=== PATIENT | female | born 1965 | race Caucasian/White ===

== ENCOUNTER → 2018-01-30 | Outpatient (CLI) | payer OTHER | END | disposition home or self-care (01) | LOC: C.LABSPEC 17:31 | PROVIDERS: ATTEND Physician Assistant | DX: B37.3 Candidiasis of vulva and vagina (principal) ==

== ENCOUNTER 2019-02-26 12:26 | Observation (INO) ==
--- OUTSIDE RECORDS SUMMARY | 2019-02-26 12:28 | External Medical Summary | Continuity of Care Document ---
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) Allergies and Adverse Reactions No Known Drug Allergies (Allergy) Medications Motrin TABS Refills: 0 Multiple Vitamin TABS Refills: 0 Procedures History of Dilation And Curettage Status : Completed History of Tubal Ligation During Section Status: Completed History of Section Status: Comp leted History of Hysterectomy Status: Complete d History of Cholecystectomy Status: Compl eted Immunizations Immunizations not documented Family History Mother Family history of diabetes mellitus (V18.0) (Z83.3) Status: Active Father Family history of diabetes mellitus (V18.0) (Z83.3) Status: Active Social History - Smoking Status Never smoker Interventions Discussion/SummarySymptoms are improving. May consider continuing to apply clotrimazole to area for another 2-4 weeks,also consider OTC hydrocortisone to help reduce inflammation. Follow up as needed. Plan of Treatment Planned Observations Planned Goals not documented Results No Known Results Results not documented Encounters Appointment; Cece Diehl PA-C 30-Jan-2018 13:50 Encounter Diagnosis: Problem not documented Appointment; Cece Diehl PA-C 12-Feb-2018 14:20 Encounter Diagnosis: Problem not documented
[2019-02-26] MEDS ORDERED: MoRPHine SULFATE 4 MG/ML 1 ML CARP\\VIAL IV STA (12:53)
[2019-02-26] MEDS ORDERED: ONDANSETRON INJ 2 MG/ML 2 ML VIAL IV STA (12:53)
[2019-02-26 13:43] LABS: Basophils # (auto) 0.03 K/uL (0-0.2); Basophils % (auto) 0.2 %; Eosinophils # (auto) 0.11 K/uL (0-0.5); Eosinophils % (auto) 0.6 %; Hematocrit (blood only) 39.5 % (37-47); Hemoglobin 13.2 g/dL (12.0-16.0); Immature Granulocytes # (auto) 0.07 K/uL (0.00-0.02); Immature Granulocytes % (auto) 0.4 %; Lymphocytes # (auto) 1.89 K/uL (1.2-3.4); Mean Corpuscular Hgb Conc 33.4 g/dL (32-36); Mean Corpuscular Volume 80.1 fL (80-100); Mean Platelet Volume 10.6 fL (7.4-10.4); Monocytes # (auto) 1.68 K/uL (0.11-0.59); Monocytes % (auto) 8.9 %; Neutrophils # (auto) 15.09 K/uL (1.4-6.5); Neutrophils % (auto) 79.9 %; Platelet Count 219 K/uL (130-400); RDW Coefficient of Variation 13.8 % (11.5-14.5); Red Blood Count 4.93 M/uL (4.2-5.4); White Blood Count 18.87 K/uL (4.8-10.8)
[2019-02-26] MEDS ORDERED: SODIUM CHLORIDE 0.9% 1000ML 1,000 ML IV ONE (13:57)
[2019-02-26 14:00] LABS: Albumin Level 3.4 gm/dl (3.4-5.0); BUN Creatinine Ratio 30.1 (10-20); Creatinine Clr Calc Pharmacy 106.7 ml/min; Est GFR (African American) 127.2; Est GFR (Non-African American) 109.8; Potassium 3.6 mmol/L (3.5-5.1)
[2019-02-26 14:03] LABS: Albumin Globulin Ratio 0.9 (0.9-2); Bilirubin,Total 0.7 mg/dl (0.2-1); Globulin 3.8 gm/dl (2.5-4.0); Total Protein 7.2 gm/dl (6.4-8.2)
[2019-02-26 14:15] LABS: Appearance Urine Clear (Clear); Bilirubin Urine Negative (Negative); Color Urine Yellow; Glucose Urine UA 3+ (Negative); Ketones Urine 1+ (Negative); Leukocyte Esterase Urine Negative (Negative); Nitrite Urine Negative (Negative); Protein Urine Negative (Negative); Specific Gravity Urine 1.043 (1.000-1.030); Urobilinogen Urine Negative (Negative); pH Urine 5.5 (4.5-7.5)
[2019-02-26] MEDS ORDERED: IOVERSOL 100ml IV PRN (15:44)
--- NOTE | 2019-02-26 15:53 | CT Scan Report ---
CT abd pelvis oral and IV con CT DOSE: 316.01 mGy.cm HISTORY: Pain lower abd pain eval for divertic TECHNIQUE: Multiaxial CT images of the abdomen and pelvis were performed following the use of intrave nous and oral contrast. A dose lowering technique was utilized adhering to the principles of ALARA. COMPARISON STUDY: None. FINDINGS: Lung bases are clear. Liver spleen and pancreas are unremarkable. Prior cholecystectomy. Kidneys enhance uniformly. No evidence for hydronephrosis. Evidence for a distended fluid-filled appe ndix having a maximum diameter of 12 mm. Trace amount of periappendiceal infiltrative change with sli ght edematous change at the base of the cecum. The terminal ileum appears unremarkable. No evidence for abscess or collection. Bladder is midline. Scattered colonic diverticulosis. Left ovarian cyst measuring 1.3 and 1.5 cm respectively. IMPRESSION: 1. Acute appendicitis. 2. Appendix is dilated to a maximum diameter of 12 mm. 3. Small amount of periappendiceal infiltrative change. 4. No evidence for abscess collection or obstructive change. 5. Small left ovarian cyst. The above report was generated using voice recognition software. It may contain grammatical, syntax or spelling errors. Electronically signed by: Daniel Guerrier M.D. 02/26/2019 3:52 PM
[2019-02-26] MEDS ORDERED: MoRPHine SULFATE 2 MG/ML CARP IV STA (16:05)
[2019-02-26] MEDS ORDERED: cefOXitin 2,000 MG/60 ML BAG IV STA (16:34)
--- NOTE | 2019-02-26 16:43 | Surgery Consultation ---
Date of Consultation February 26, 2019 Assessment & Plan (1) Acute appendicitis: pt is a 54 year-old female who presents to ER with 3 days history RLQ pain, CT scan dx acute appendicitis, I reviewed the CT scan, IMP: acute appendicitis, possible perforation, Plan: I recommend to do laparoscopic appendectomy, possible open, D/W benefits, risks and alternatives of the surgery, the risks - infection,b bleeding, injury Bowel, abscess, sepsis, DVT, SC, stroke, , pt understood, she agrees with the surgery, I answered all questions, pre-op cefoxitin 2gram, iv now, History of Present Illness History of Present Illness pt is a 54 year-old female who presents to Er with 3 days history RLQ pain, with nausea, no vomiting, the pain is located at RLQ, pt denies diarrhea, no fever, pt had CT scan at Er, Dx acute appendicitis, pt's PMH only is DM, pt denies any chest pain, no SOB. Allergies Allergy/AdvReac Type Severity Reaction Status Date / Time No Known Allergies Allergy Verified 12/04/02 14:30 Home Medications Home Medications Medication Instructions Recorded Confirmed Type empagliflozin [Jardiance] 10 mg PO DAILY 02/26/19 02/26/19 History metformin 500 mg PO BID 02/26/19 02/26/19 History sitagliptin [Januvia] 50 mg PO DAILY 02/26/19 02/26/19 History Patient History Medical History Diabetes (Chronic) Social History Feels Safe at Home: Yes Smoking Status: Former smoker Review of Systems Review of Systems: All systems reviewed & are unremarkable except as noted in HPI & below Constitutional: as per Subjective / HPI Ear, Nose, Mouth, Throat: as per Subjective / HPI Respiratory: as per Subjective / HPI Cardiovascular: as per Subjective / HPI Gastrointestinal: + abdominal pain and + nausea S/P laparoscopic cholecy stectomy Genitourinary: as per Subjective / HPI Musculoskeletal: as per Subjective / HPI Integumentary: as per Subjective / HPI Neurologic: as per Subjective / HPI Psychiatric: as per Subjective / HPI Endocrine: as per Subjective / HPI Hematologic / Lymphatic: as per Subjective / HPI Physical Exam Constitutional: WD/WN, vitals as above well developed and well nourished ENMT: external ear and nose normal, oropharynx normal Neck: trachea midline, no thyromegaly Respiratory: normal respiratory effort, lungs clear to auscultation normal respiratory effort Cardiovascular: RRR, no murmur, no edema Rate/Rhythm: regular rate and regular rhythm Heart Sounds: normal S1 and normal S2 Gastrointestinal (Abdomen): Percussion/Palpation: + abdomen tender and abdomen soft tenderness at lower abdomen with rebound pain, no distend, BS +, one scar on umbilical area fotr laparoscopic cholecystectomy. one lower abdominal scar for hysterectomy Musculoskeletal: no cyanosis or clubbing, extremities motor strength 5/5 Neurologic: awake Psychiatric: Orientation: alert and oriented x 3 Lymphatic: no cervical or axillary lymphadenopathy Results & Data Vital Signs (Past 12 Hours) Vital Signs Temp Pulse Pulse Resp BP BP Pulse Ox 02/26/19 15:49 88 18 125/77 96 02/26/19 15:02 88 13 125/73 02/26/19 14:31 80 15 134/70 98 02/26/19 14:01 87 17 128/76 98 02/26/19 13:28 91 H 94 H 14 133/73 133/73 97 02/26/19 12:29 36.4 C L 96 H 16 125/75 99 Laboratory Results Abnormal lab results 02/26/19 02/26/19 02/26/19 Range/Units 13:24 13:24 13:25 WBC 18.87 H (4.8-10.8) K/uL MPV 10.6 H (7.4-10.4) fL Immature Gran # (Auto) 0.07 H (0.00-0.02) K/uL Neut # (Auto) 15.09 H (1.4-6.5) K/uL [place] # (Auto) 1.68 H (0.11-0.59) K/uL Creatinine 0.51 L (0.6-1.2) mg/dl BUN/Creatinine Ratio 30.1 H (10-20) Glucose 149 H (70-99) mg/dl Ur Specific [place] (1.000-1.030) Urine Glucose (UA) (Negative) POC Ur Glucose (UA) 1000 H (Normal) Urine Ketones (Negative) POC Urine Ketones 2+ (Moderate) H (Negative) 02/26/19 Range/Units 13:25 WBC (4.8-10.8) K/uL MPV (7.4-10.4) fL Immature Gran # (Auto) (0.00-0.02) K/uL Neut # (Auto) (1.4-6.5) K/uL [place] # (Auto) (0.11-0.59) K/uL Creatinine (0.6-1.2) mg/dl BUN/Creatinine Ratio (10-20) Glucose (70-99) mg/dl Ur Specific [place] 1.043 H (1.000-1.030) Urine Glucose (UA) 3+ H (Negative) POC Ur Glucose (UA) (Normal) Urine Ketones 1+ H (Negative) POC Urine Ketones (Negative) Diagnostic Findings CT abd pelvis oral and IV con CT DOSE: 316.01 mGy.cm HISTORY: Pain lower abd pain eval for divertic TECHNIQUE: Multiaxial CT images of the abdomen and pelvis were performed following the use of intravenous and oral contrast. A dose lowering technique was utilized adhering to the principles of ALARA. COMPARISON STUDY: None. FINDINGS: Lung bases are clear. Liver spleen and pancreas are unremarkable. Prior cholecystectomy. Kidneys enhance uniformly. No evidence for hydronephrosis. Evidence for a distended fluid-filled appendix having a maximum diameter of 12 mm. Trace amount of periappendiceal infiltrative change with slight edematous change at the base of the cecum. The terminal ileum appears unremarkable. No evidence for abscess or collection. Bladder is midline. Scattered colonic diverticulosis. Left ovarian cyst measuring 1.3 and 1.5 cm r espectively. IMPRESSION: 1. Acute appendicitis. 2. Appendix is dilated to a maximum diameter of 12 mm. 3. Small amount of periappendiceal infiltrative change. 4. No evidence for abscess collection or obstructive change. 5. Small left ovarian cyst. (1) Acute appendicitis Acute appendicitis type: unspecified acute appendicitis type Qualified Code(s): K35.80 - Unspecified acute appendicitis
--- NOTE | 2019-02-26 16:51 | History & Physical Bridge Note ---
Date of Service February 26, 2019 History & Physical Bridge Note I have examined the patient, reviewed the History & Physical and in the interval since the performance of the History & Physical I have noted the following changes of clinical significance: no changes noted
[2019-02-26] MEDS ORDERED: fentaNYL citrate 100 MCG/2 ML VIAL ONE (18:04)
[2019-02-26] MEDS ORDERED: MIDAZOLAM HCL 1 MG/ML 2ML VIAL ONE (18:04)
--- NOTE | 2019-02-26 18:16 | Anesthesiology Consultation ---
Date of Service February 26, 2019 Assessment & Plan Chart Review Chart Review: Acceptable Risk for Surgery and Patient NOT seen in Pre Admission Testing Consults Requested none ASA [id number] Proposed Anesthesia Anesthesia Type: General Risk / Benefits Reviewed With: PT / POA / Parent / Guardian, Accepts Plan and Informed Consent Obtained History Surgery Operation Date: 02/26/19 12:40 Proposed Procedures p Laparoscopic Appendectomy - Katie Brizuela MD Height/Weight Height: 5 ft 1 in Weight: 60.8 kg Allergies Allergy/AdvReac Type Severity Reaction Status Date / Time No Known Allergies Allergy Verified 02/26/19 17:53 Medications Home Medications Medication Instructions Recorded Confirmed Last Taken empagliflozin [Jardiance] 10 mg PO DAILY 02/26/19 02/26/19 Unknown metformin 500 mg PO BID 02/26/19 02/26/19 02/24/19 sitagliptin [Januvia] 50 mg PO DAILY 02/26/19 02/26/19 Unknown Active Medications Generic Name Dose Route Start Last Admin Trade Name Freq PRN Reason Stop Dose Admin Ioversol 94 ml 02/26/19 15:44 02/26/19 15:45 Optiray 320 100ml IV 03/02/19 15:43 94 ml ONCE PRN Administration Interaction Checking NPO Date Last Intake of Fluids: 02/26/19 Time Last Intake of Fluids: 15:00 Last Intake of Fluids Comment: Ct dye Date Last Intake of Solids: 02/26/19 Time Last Intake of Solids: 09:30 Past Medical History Medical History Acute appendicitis (Acute) Diabetes (Chronic) Exercise / Class Metabolic Activity II 4-5 Yardwork/Stairs/Walk up hill Past Anesthesia History No Hx of Anesthesia Complications and No Family Hx of Anesthesia Complications History of PONV No Hx of PONV and No Hx of Motion Sickness Social History Smoking Status: Former smoker Physical Exam Vital Signs Last Vital Signs Temp 37.3 C 02/26/19 17:54 Pulse 102 H 02/26/19 17:54 Resp 20 02/26/19 17:54 BP 134/73 02/26/19 17:54 Pulse Ox 95 02/26/19 17:54 Constitutional not obese ENMT Mouth: no dentition abnormality Thyromental Distance: < 3.5 Finger Breadths Mallampati Class: II Neck normal visual inspection and trachea midline; neck extension not limited Respiratory normal respiratory effort Auscultation: lungs clear to auscultation bilaterally Cardiovascular Rate/Rhythm: regular rate and regular rhythm Heart Sounds: no murmur Vessels: no carotid bruit Musculoskeletal Spine: normal cervical ROM Neurologic moves all extremities Motor/Sensory: + sensory deficit (diabetic PN fingers) Psychiatric Orientation: alert and oriented x 3 Testing Laboratory Results 02/26/19 13:24 02/26/19 13:24 Urine Color Yellow 02/26/19 13:25 Urine Appearance Clear (Clear) 02/26/19 13:25 Urine pH 5.5 (4.5-7.5) 02/26/19 13:25 Ur Specific [place] 1.043 (1.000-1.030) H 02/26/19 13:25 Urine Protein Negative (Negative) 02/26/19 13:25 Urine Glucose (UA) 3+ (Negative) H 02/26/19 13:25 Urine Ketones 1+ (Negative) H 02/26/19 13:25 Urine Nitrite Negative (Negative) 02/26/19 13:25 Ur Leukocyte Esterase Negative (Negative) 02/26/19 13:25 02/26/19 18:00 POC Glucose 95 02/26/19 13:25 POC Ur Test NEG
--- NOTE | 2019-02-26 18:21 | Emergency Department Note ---
Entered by Nelly Swain acting as a scribe for Giorgio Maddox MD History of Present Illness General Chief complaint: Abdominal Pain Stated complaint: ABDOMINAL PAIN Source: patient History of Present Illness Onset (ago): day(s) 2 Location: abdomen (lower) Pain Consistency: + other (persistent ) Maximum Pain Intensity: 9 Quality: + other (cramping ) Exacerbated By: + movement Associated symptoms: + other (negative urinary symptoms; positive dark stools; negative black stools; ); no fever/chills and no nausea/vomiting (positive resolved nausea) The patient is a 54 year old female who presents to the Emergency Room with complaints of persistent lower abdominal pain that began 2 days prior to arrival. The patient describes her pain as cramping. The patient states that her pain is exacerbated with movement. She denies fever, urinary symptoms, and vomiting. The patient states that when her pain began she had nausea, but states that this has since resolved. She states that she has had dark stools, but denies black stools. The patient states that her last bowel movement was 2 nights ago, and states that this is a normal amount of time to go without a bowel movement for her. The patient states that she was switched to a new medication for her diabetes, Glyxambi, the morning before her pain began. The patient states that she has previous had a hysteretomy, three C-sections, and a cholecystectomy. Home Medications Home Medications Medication Instructions Recorded Confirmed Type empagliflozin [Jardiance] 10 mg PO DAILY 02/26/19 02/26/19 History metformin 500 mg PO BID 02/26/19 02/26/19 History sitagliptin [Januvia] 50 mg PO DAILY 02/26/19 02/26/19 History Allergies Allergy/AdvReac Type Severity Reaction Status Date / Time No Known Allergies Allergy Verified 02/26/19 17:53 Past Med/Surg History Medical History Acute appendicitis (Acute) Diabetes (Chronic) Social History Feels Safe at Home: Yes Smoking Status: Former smoker Review of Systems See HPI for pertinent positives & negatives. and A total of 10 systems reviewed and were otherwise negative Physical Exam Vital Signs Vital Signs - 24 hr 02/26/19 12:29 02/26/19 13:28 02/26/19 14:01 Temperature 36.4 C L Temperature Source Oral Sepsis Recent Fever Within 48 Hours No Sepsis Action Taken by Nursing No Action Required Pulse Rate 96 H 91 H 87 Pulse Rate [Apical] 94 H Pulse Rate [Finger] Pulse Rate from SpO2 Sensor 90 88 Pulse Rhythm [Finger] Pulse Strength [Finger] Respiratory Rate 16 14 17 Respiratory Effort / Characteristics Non-Labored Respiratory Depth Normal Respiratory Pattern Regular Blood Pressure 125/75 133/73 128/76 Blood Pressure [Left Arm] 133/73 Blood Pressure Mean 91 93 93 Blood Pressure Mean [Left Arm] 93 Blood Pressure Position Sitting Blood Pressure Position [Left Arm] Pulse Oximetry 99 97 98 Oxygen Delivery Method Room Air Room Air 02/26/19 14:31 02/26/19 15:02 02/26/19 15:49 Temperature Temperature Source Sepsis Recent Fever Within 48 Hours Sepsis Action Taken by Nursing Pulse Rate 80 88 Pulse Rate [Apical] 88 Pulse Rate [Finger] Pulse Rate from SpO2 Sensor 81 Pulse Rhythm [Finger] Pulse Strength [Finger] Respiratory Rate 15 13 18 Respiratory Effort / Characteristics Respiratory Depth Respiratory Pattern Blood Pressure 134/70 125/73 Blood Pressure [Left Arm] 125/77 Blood Pressure Mean 91 90 Blood Pressure Mean [Left Arm] 93 Blood Pressure Position Blood Pressure Position [Left Arm] Pulse Oximetry 98 96 Oxygen Delivery Method Room Air 02/26/19 16:01 02/26/19 16:31 02/26/19 17:01 Temperature Temperature Source Sepsis Recent Fever Within 48 Hours Sepsis Action Taken by Nursing Pulse Rate 82 99 H 97 H Pulse Rate [Apical] Pulse Rate [Finger] Pulse Rate from SpO2 Sensor 83 99 H Pulse Rhythm [Finger] Pulse Strength [Finger] Respiratory Rate 15 18 26 H Respiratory Effort / Characteristics Respiratory Depth Respiratory Pattern Blood Pressure 120/83 141/82 H 139/87 Blood Pressure [Left Arm] Blood Pressure Mean 95 101 104 Blood Pressure Mean [Left Arm] Blood Pressure Position Blood Pressure Position [Left Arm] Pulse Oximetry 99 100 Oxygen Delivery Method Room Air Room Air 02/26/19 17:03 02/26/19 17:31 02/26/19 17:54 Temperature 37.3 C Temperature Source Oral Sepsis Recent Fever Within 48 Hours Sepsis Action Taken by Nursing Pulse Rate 94 H Pulse Rate [Apical] 93 H Pulse Rate [Finger] 102 H Pulse Rate from SpO2 Sensor 95 H Pulse Rhythm [Finger] Regular Pulse Strength [Finger] Normal Respiratory Rate 16 14 20 Respiratory Effort / Characteristics Non-Labored Spontaneous Non-Labored Spontaneous Respiratory Depth Normal Normal Respiratory Pattern Regular Blood Pressure 131/72 Blood Pressure [Left Arm] 139/87 134/73 Blood Pressure Mean 91 Blood Pressure Mean [Left Arm] 104 93 Blood Pressure Position Blood Pressure Position [Left Arm] Sitting Pulse Oximetry 97 98 95 Oxygen Delivery Method Room Air Room Air Room Air Constitutional: Vital signs reviewed. Eyes: Pupils are equal round reactive to light. Conjunctiva are noninjected. ENT: Pharynx is clear without erythema or exudate. Mucous membranes are moist. Neck supple without meningeal signs. Respiratory: Clear to auscultation bilaterally. Breath sounds are equal bilaterally. Cardiovascular: Regular rate and rhythm. No rubs or gallops. GI: Soft, nondistended. Bowel sounds are present. Diffuse lower abdominal tenderness. No guarding. No CVA tenderness. Musculoskeletal: No peripheral edema. No lower extremity tenderness. Integumentary: No cyanosis. Neurological: The patient is awake and alert. No focal deficits. Psychiatric: Normal affect. Course 1247: The patient was evaluated in room C1B, and a complete history and physical examination were performed. 1400: I discussed the test results so far with the patient. She states that she feels better, but states that she feels lightheaded from the medication. The patient states that she has not taken her diabetes medication in 2 days because her doctor told her not to because it was thought these might be responsible for her symptoms. 1624: I discussed the case with Dr. Mayen who states that he will be taking the patient to the OR. Consultations Consultation #1: I discussed the case with Dr. Mayen who states that he will be taking the patient to the OR. Time: 16:24 Administered Medications Ioversol (Optiray 320 100ml) 94 ml IV ONCE PRN PRN Reason: Interaction Checking Stop: 03/02/19 15:43 Last Admin: 02/26/19 15:45 Dose: 94 ml Documented by: [id number] Discontinued Medications Sodium Chloride (Nss 1000ml) 1,000 mls @ 999 mls/hr IV .Q1H1M ONE Stop: 02/26/19 14:57 Last Infusion: 02/26/19 17:05 Dose: 0 mls/hr Documented by: [id number] Admin: 02/26/19 14:35 Dose: 999 mls/hr Documented by: [id number] Cefoxitin Sodium (Mefoxin) 2,000 mg in 60 mls @ 100 mls/hr IV NOW STA Stop: 02/26/19 17:09 Last Infusion: 02/26/19 17:36 Dose: 0 mls/hr Documented by: [id number] Admin: 02/26/19 17:00 Dose: 100 mls/hr Documented by: [id number] Morphine Sulfate (Morphine Sulfate) 4 mg IV NOW STA Stop: 02/26/19 12:54 Last Admin: 02/26/19 13:29 Dose: 4 mg Documented by: [id number] Morphine Sulfate (Morphine Sulfate) 2 mg IV NOW STA Stop: 02/26/19 16:06 Last Admin: 02/26/19 16:11 Dose: 2 mg Documented by: [id number] Ondansetron HCl (Zofran) 4 mg IV NOW STA Stop: 02/26/19 12:54 Last Admin: 02/26/19 13:29 Dose: 4 mg Documented by: [id number] Medical Decision Making Differential Diagnosis Differential diagnoses include diverticulitis, perforation, abscess, appe ndicitis, colitis, and others were considered. Medical Records Attestation: I reviewed the patient's medical records. (The patient has no recent pertinent visits. ) Home Medications Current Medication List: was personally reviewed by me Laboratory Data Attestation: I reviewed the patient's lab results. Result diagrams: 02/26/19 13:24 02/26/19 13:24 Lab Results 02/26/19 02/26/19 02/26/19 Range/Units 13:24 13:24 13:25 WBC 18.87 H (4.8-10.8) K/uL RBC 4.93 (4.2-5.4) M/uL Hgb 13.2 (12.0-16.0) g/dL Hct 39.5 (37-47) % MCV 80.1 (80-100) fL MCH 26.8 (25-34) pg MCHC 33.4 (32-36) g/dL RDW Std Deviation 40.0 (36.4-46.3) fL RDW Coeff of Roderick 13.8 (11.5-14.5) % Plt Count 219 (130-400) K/uL MPV 10.6 H (7.4-10.4) fL Immature Gran % (Auto) 0.4 % Neut % (Auto) 79.9 % Lymph % (Auto) 10.0 % [place] % (Auto) 8.9 % Eos % (Auto) 0.6 % Baso % (Auto) 0.2 % Immature Gran # (Auto) 0.07 H (0.00-0.02) K/uL Neut # (Auto) 15.09 H (1.4-6.5) K/uL Lymph # (Auto) 1.89 (1.2-3.4) K/uL [place] # (Auto) 1.68 H (0.11-0.59) K/uL Eos # (Auto) 0.11 (0-0.5) K/uL Baso # (Auto) 0.03 (0-0.2) K/uL Sodium 137 (136-145) mmol/L Potassium 3.6 (3.5-5.1) mmol/L Chloride 104 (98-107) mmol/L Carbon Dioxide 26 (21-32) mmol/L Anion Gap 6.0 (3-11) BUN 15 (7-18) mg/dl Creatinine 0.51 L (0.6-1.2) mg/dl Est Cr Clr Drug Dosing 106.7 ml/min Est GFR ( Amer) 127.2 Est GFR (Non-Af Amer) 109.8 BUN/Creatinine Ratio 30.1 H (10-20) Glucose 149 H (70-99) mg/dl POC Glucose (70-99) Calcium 9.0 (8.5-10.1) mg/dl Total Bilirubin 0.7 (0.2-1) mg/dl AST 20 (15-37) U/L ALT 27 (12-78) U/L Alkaline Phosphatase 64 (45-117) U/L Total Protein 7.2 (6.4-8.2) gm/dl Albumin 3.4 (3.4-5.0) gm/dl Globulin 3.8 (2.5-4.0) gm/dl Albumin/Globulin Ratio 0.9 (0.9-2) Lipase 154 (73-393) U/L Urine Color Urine Appearance (Clear) Urine pH (4.5-7.5) POC Urine pH 5 (4.5-7.5) Ur Specific Bynum (1.000-1.030) Urine Protein (Negative) POC Urine Protein Negative (Negative) Urine Glucose (UA) (Negative) POC Ur Glucose (UA) 1000 H (Normal) Urine Ketones (Negative) POC Urine Ketones 2+ (Moderate) H (Negative) Urine Blood (Negative) POC Urine Blood Negative (Negative) Urine Nitrite (Negative) POC Urine Nitrite Negative (Negative) Urine Bilirubin (Negative) POC Urine Bilirubin Not Reportable Urine Urobilinogen (Negative) POC Urine Urobilinogen Normal (Normal) Ur Leukocyte Esterase (Negative) POC U Leukocyte Esteras Negative (Negative) POC Ur Test (NEG) 02/26/19 02/26/19 02/26/19 Range/Units 13:25 13:25 18:00 WBC (4.8-10.8) K/uL RBC (4.2-5.4) M/uL Hgb (12.0-16.0) g/dL Hct (37-47) % MCV (80-100) fL MCH (25-34) pg MCHC (32-36) g/dL RDW Std Deviation (36.4-46.3) fL RDW Coeff of Roderick (11.5-14.5) % Plt Count (130-400) K/uL MPV (7.4-10.4) fL Immature Gran % (Auto) % Neut % (Auto) % Lymph % (Auto) % [place] % (Auto) % Eos % (Auto) % Baso % (Auto) % Immature Gran # (Auto) (0.00-0.02) K/uL Neut # (Auto) (1.4-6.5) K/uL Lymph # (Auto) (1.2-3.4) K/uL [place] # (Auto) (0.11-0.59) K/uL Eos # (Auto) (0-0.5) K/uL Baso # (Auto) (0-0.2) K/uL Sodium (136-145) mmol/L Potassium (3.5-5.1) mmol/L Chloride (98-107) mmol/L Carbon Dioxide (21-32) mmol/L Anion Gap (3-11) BUN (7-18) mg/dl Creatinine (0.6-1.2) mg/dl Est Cr Clr Drug Dosing ml/min Est GFR ( Amer) Est GFR (Non-Af Amer) BUN/Creatinine Ratio (10-20) Glucose (70-99) mg/dl POC Glucose 95 (70-99) Calcium (8.5-10.1) mg/dl Total Bilirubin (0.2-1) mg/dl AST (15-37) U/L ALT (12-78) U/L Alkaline Phosphatase (45-117) U/L Total Protein (6.4-8.2) gm/dl Albumin (3.4-5.0) gm/dl Globulin (2.5-4.0) gm/dl Albumin/Globulin Ratio (0.9-2) Lipase (73-393) U/L Urine Color Yellow Urine Appearance Clear (Clear) Urine pH 5.5 (4.5-7.5) POC Urine pH (4.5-7.5) Ur Specific [place] 1.043 H (1.000-1.030) Urine Protein Negative (Negative) POC Urine Protein (Negative) Urine Glucose (UA) 3+ H (Negative) POC Ur Glucose (UA) (Normal) Urine Ketones 1+ H (Negative) POC Urine Ketones (Negative) Urine Blood Negative (Negative) POC Urine Blood (Negative) Urine Nitrite Negative (Negative) POC Urine Nitrite (Negative) Urine Bilirubin Negative (Negative) POC Urine Bilirubin Urine Urobilinogen Negative (Negative) POC Urine Urobilinogen (Normal) Ur Leukocyte Esterase Negative (Negative) POC U Leukocyte Esteras (Negative) POC Ur Test NEG (NEG) Imaging Data Radiologist's Impression: Radiology results as stated below per my review and the radiologist's interpretation: CT abd pelvis oral and IV con CT DOSE: 316.01 mGy.cm HISTORY: Pain lower abd pain eval for divertic TECHNIQUE: Multiaxial CT images of the abdomen and pelvis were performed following the use of intravenous and oral contrast. A dose lowering technique w as utilized adhering to the principles of ALARA. COMPARISON STUDY: None. FINDINGS: Lung bases are clear. Liver spleen and pancreas are unremarkable. Prior cholecystectomy. Kidneys enhance uniformly. No evidence for hydronephrosis. Evidence for a distended fluid-filled appendix having a maximum diameter of 12 mm. Trace amount of periappendiceal infiltrative change with slight edematous change at the base of the cecum. The terminal ileum appears unremarkable. No evidence for abscess or collection. Bladder is midline. Scattered colonic diverticulosis. Left ovarian cyst measuring 1.3 and 1.5 cm respectively. IMPRESSION: 1. Acute appendicitis. 2. Appendix is dilated to a maximum diameter of 12 mm. 3. Small amount of periappendiceal infiltrative change. 4. No evidence for abscess collection or obstructive change. 5. Small left ovarian cyst. The above report was generated using voice recognition software. It may contain grammatical, syntax or spelling errors. Electronically signed by: Daniel Guerrier M.D. 02/26/2019 3:52 PM Blood Pressure Blood Pressure Findings: Normal blood pressure MDM Narrative I did evaluate the patient as noted above. The patient is presenting with lower abdominal pain with tenderness over the past 2 days. IV access was e stablished. I did treat the patient with IV morphine and Zofran. She is also given the normal saline IV. The patient was placed on a continuous monitoring and evaluation advisor. I did order a urine analysis. There is glucose but no signs of infection. I did order and review the patient's blood work as noted in the electronic medical record. Her white count is elevated significantly. I did order a CT of the abdomen and pelvis. I did review the images myself as well as the radiology report as described above. She does have acute appendicitis. I did discuss the test results with her. I did treat her with additional IV morphine. I did discuss the case with the surgeon on-call who took the patient to the OR for appendectomy. Impression & Plan Acute appendicitis Discharge Plan Visit Data *Final* Discharge Date/Time: 02/26/19 17:47 Chief Complaint: Abdominal Pain Stated Complaint: ABDOMINAL PAIN ED Provider: Giorgio Maddox Discharge Problem: Acute appendicitis Patient Disposition: Admitted As Inpatient Discharge Instructions Interventions: ED Discharge Assessment Last Done: 02/26/19 17:47 Discharge Problem: Acute appendicitis Qualifiers: Acute appendicitis type: unspecified acute appendicitis type Qualified Code(s): K35.80 - Unspecified acute appendicitis The scribe's documentation has been prepared under my direction and personally reviewed by me in its entirety. I confirm that the note above accurately reflects all work, treatment, procedures, and medical decision making performed by me.
[2019-02-26] MEDS ORDERED: BACITRACIN OINT 15 GM TUBE ONE (18:47)
[2019-02-26] MEDS ORDERED: BUPIVACAINE 0.5 % 5 MG/1 ML MPF 30ML VIAL ONE (18:47)
[2019-02-26] MEDS ORDERED: LIDOCAINE HCL 1% 20 ML VIAL ONE (18:47)
[2019-02-26] MEDS ORDERED: NEOSTIGMINE METHYLSULFATE 5 MG/5 ML SYR ONE (19:21)
[2019-02-26] MEDS ORDERED: PROPOFOL IV EMULSION 10 MG/ML 20 ML VIAL IV ONE (19:21)
[2019-02-26] MEDS ORDERED: LIDOCAINE HCL 2% 2 ML VIAL/AMP(20MG/ML) INFIL ONE (19:21)
[2019-02-26] MEDS ORDERED: ROCURONIUM BROMIDE 10 MG/ML 5 ML VIAL ONE (19:21)
[2019-02-26] MEDS ORDERED: DEXAMETHASONE SOD INJ 4 MG/ML VIAL ONE (19:21)
[2019-02-26] MEDS ORDERED: GLYCOPYRROLATE 0.2 MG/ML VIAL ONE (19:21)
[2019-02-26] MEDS ORDERED: CISATRACURIUM BESYLATE IV SOLN 2 MG/ML 10 ML VIAL IV ONE (19:21)
[2019-02-26] MEDS ORDERED: ONDANSETRON INJ 2 MG/ML 2 ML VIAL ONE (19:21)
--- NOTE | 2019-02-26 20:22 | Post Operative Brief Note ---
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 Removed at the end of the case) Anesthesia Type General Complications none Disposition Accompanied Patient To Recovery: Yes Disposition: Recovery Room Overlapping Procedure I was immediately available: during the entire case.
[2019-02-26] MEDS ORDERED: ONDANSETRON INJ 2 MG/ML 2 ML VIAL IV PRN ×2 (20:24→20:34)
[2019-02-26] MEDS ORDERED: PIPERACILL/TAZOBAC CONSULT ACTIVE PRN (20:26)
[2019-02-26] MEDS ORDERED: HYDROmorphone INJ 0.5 MG/0.5 ML SYR IV PRN (20:27)
[2019-02-26] MEDS ORDERED: PROMETHAZINE HCL 12.5 MG in SODIUM CHLORIDE 0.9% 50 ML IV PRN (20:34)
[2019-02-26] MEDS ORDERED: FLUMAZENIL 0.1 MG/1 ML 10 ML VIAL IV PRN (20:34)
[2019-02-26] MEDS ORDERED: NALOXONE HCL 0.4 MG/1 ML VIAL/CARP IV PRN (20:34)
[2019-02-26] MEDS ORDERED: ePHEDrine sulfate 50 MG/ML AMP IV PRN (20:34)
[2019-02-26] MEDS ORDERED: ATROPINE SULFATE 0.1 MG/ML 10ML SYR IV PRN (20:34)
[2019-02-26] MEDS ORDERED: LABETALOL HCL IV 5 MG/ML 20ML IV PRN (20:34)
[2019-02-26] MEDS: fentaNYL citrate 100 MCG/2 ML VIAL IV PRN ×3 (20:47→21:02)
--- NOTE | 2019-02-26 21:01 | Anesthesiology Progress Note ---
Date of Service February 26, 2019 Anesthesia Post Procedure Vital Signs Vital Signs: Temp Pulse Pulse Pulse Resp BP BP 02/26/19 20:50 91 H 19 130/70 02/26/19 20:40 87 15 142/67 H 02/26/19 20:32 36 C L 89 15 153/74 H 02/26/19 17:54 37.3 C 102 H 20 134/73 02/26/19 17:31 94 H 14 131/72 02/26/19 17:03 93 H 16 139/87 02/26/19 17:01 97 H 26 H 139/87 02/26/19 16:31 99 H 18 141/82 H 02/26/19 16:01 82 15 120/83 02/26/19 15:49 88 18 125/77 02/26/19 15:02 88 13 125/73 02/26/19 14:31 80 15 134/70 02/26/19 14:01 87 17 128/76 02/26/19 13:28 91 H 94 H 14 133/73 133/73 02/26/19 12:29 36.4 C L 96 H 16 125/75 Pulse Ox 02/26/19 20:50 97 02/26/19 20:40 100 02/26/19 20:32 99 02/26/19 17:54 95 02/26/19 17:31 98 02/26/19 17:03 97 02/26/19 17:01 02/26/19 16:31 100 02/26/19 16:01 99 02/26/19 15:49 96 02/26/19 15:02 02/26/19 14:31 98 02/26/19 14:01 98 02/26/19 13:28 97 02/26/19 12:29 99 Pain Intensity Bilateral Lower Abdomen: Pain Intensity: 8 Transfer of Care Handoff Completed per policy Notes Mental Status: alert / awake / arousable Patient Amnestic to Procedure: Yes Nausea / Vomiting: adequately controlled Pain: adequately controlled Airway Patency, RR, SpO2: stable & adequate BP & HR: stable & adequate Hydration State: stable & adequate Anesthetic Complications: no major complications apparent
[2019-02-26] MEDS ORDERED: PIPERACILLIN/TAZOBACTAM 3.375 GM in DEXTROSE 5% 100 ML IV ONE (21:30)
[2019-02-26] MEDS: LACTATED RINGER'S 1,000 ML IV SCH (23:02)
[2019-02-26] MEDS ORDERED: Nursing to Pharmacy Communication ONE (23:35)
[2019-02-26] MEDS: METFORMIN HCL 500 MG TAB PO SCH (23:42)
[2019-02-27] MEDS: OXYCODONE/ACETAMINOPHEN 5mg/325mg TAB PO PRN ×5 (03:38→22:46)
[2019-02-27] MEDS: PIPERACILLIN/TAZOBACTAM 3.375 GM in DEXTROSE 5% 100 ML IV SCH ×3 (03:38→20:54)
[2019-02-27] MEDS: METFORMIN HCL 500 MG TAB PO SCH ×2 (07:36→17:39)
[2019-02-27] MEDS: SITAGLIPTIN PHOSPHATE 25 MG TAB PO SCH (07:37)
[2019-02-27 07:38] LABS: Basophils % (auto) 0.1 %; Hematocrit (blood only) 36.8 % (37-47); Immature Granulocytes % (auto) 0.4 %; Lymphocytes # (auto) 1.01 K/uL (1.2-3.4); Lymphocytes % (auto) 5.3 %; Mean Corpuscular Hgb Conc 32.6 g/dL (32-36); Mean Corpuscular Volume 81.4 fL (80-100); Mean Platelet Volume 10.6 fL (7.4-10.4); Monocytes % (auto) 6.9 %; Neutrophils # (auto) 16.56 K/uL (1.4-6.5); Neutrophils % (auto) 87.3 %; Platelet Count 199 K/uL (130-400); RDW Standard Deviation 41.9 fL (36.4-46.3); Red Blood Count 4.52 M/uL (4.2-5.4); White Blood Count 18.95 K/uL (4.8-10.8)
[2019-02-27 07:39] LABS: Basophils # (auto) 0.01 K/uL (0-0.2); Immature Granulocytes # (auto) 0.07 K/uL (0.00-0.02)
--- NOTE | 2019-02-27 07:57 | Operative Report ---
DATE OF OPERATION: 02/26/2019 PREOPERATIVE DIAGNOSIS: Acute appendicitis. POSTOPERATIVE DIAGNOSES: Acute appendicitis with gangrene. OPERATION: Laparoscopic appendectomy. SURGEON: Katie Brizuela MD ANESTHESIA: General. ESTIMATED BLOOD LOSS: About 10 mL. FINDINGS: Acute appendicitis with gangrene. COMPLICATIONS: None. INDICATIONS OF THE PROCEDURE: This is a 54-year-old female who presented to the Emergency Department with 3 days history of right lower quadrant pain. The patient had a CT scan diagnosis of acute appendicitis. I recommended to do the laparoscopic appendectomy, possible open. I did talk to the patient about the benefits, risks and alternatives of the procedure. I indicated the risks may include but not limited such as bleeding, infection, abscess, injury to the bowel, sepsis and even . The patient understands. She signed informed consent and I answered all questions. DETAILS OF PROCEDURE: We brought the patient to the Operating Room and put the patient in the supine position. The patient received sequential compression devices on bilateral legs to prevent deep venous thrombosis. Also, the patient received 2 g cefoxitin I.V. for prophylactic antibiotics. The patient received general anesthesia without difficulty. Also, the patient received Tsang catheter insertion. The abdomen was prepped and draped in the routine sterile fashion. After time out, the patient was identified. Then, I injected local anesthesia by using 1% lidocaine mixed with 0.5% Marcaine just above umbilicus. Then, I made a small incision just above the umbilicus, opened the fascia and opened peritoneum under direct vision, put a John trocar in, connected to CO2 to create pneumoperitoneum. Flow rate at 6 liter per minute. Pressure not more than 14 mmHg. Once we got a nice pneumoperitoneum, we put the camera in, looked around the abdomen which showed normal finding on the small bowel and large bowel. The appendix revealed significant inflammation with close to 2 cm in diameter gangrene. There was some pus outside the appendix. Also, the patient has some adhesions on the inside of the abdomen. Then, we put another two 5 mm trocars on the left lower quadrant area. Then, we took down the adhesion inside the abdomen, rechecked, no active bleeding. Then, we mobilized the appendix and I made a window on the appendix near the base of the appendix. Then, I used a 45 mm Endo-DESIREE staple to transect on the base of the appendix, rechecked the staple line intact and no active bleeding, no leak. Then, I used a Harmonic to take down appendix, rechecked, no active bleeding. Then, we removed the appendix through the catch bag. Then, we reinserted John trocar and connected to CO2 to create pneumoperitoneum. Again, looked around the abdomen which showed a stable and intact and no active bleeding, no leak. Then, we removed all trocars under direct vision. No active bleeding from the trocar sites. Pneumoperitoneum was released. I closed the umbilical incision, fascial layer by using #1 Vicryl [id number] x2, closed subcutaneous layer by using 2-0 Vicryl interrupted and closed skin by using 4-0 Vicryl continuous running and then we closed another two 5 mm trocar site skin only by using 4-0 Vicryl. We put the dressing on. The patient tolerated the procedure well. All the instrument, needle and sponge count correct x2 at the end of case. After the procedure, the patient was transferred to Recovery Room in stable condition. The specimen was sent to Pathology. I attest to the content of the Intraoperative Record and any orders documented therein. Any exception s are noted below.
[2019-02-27 08:04] LABS: Albumin Globulin Ratio 0.7 (0.9-2); Albumin Level 2.8 gm/dl (3.4-5.0); Bilirubin,Total 0.8 mg/dl (0.2-1); Calcium 8.3 mg/dl (8.5-10.1); Creatinine Clr Calc Pharmacy 104.7 ml/min; Est GFR (African American) 126.4; Est GFR (Non-African American) 109.1; Globulin 3.8 gm/dl (2.5-4.0); Potassium 3.9 mmol/L (3.5-5.1); Total Protein 6.6 gm/dl (6.4-8.2)
[2019-02-27] MEDS: LACTATED RINGER'S 1,000 ML IV SCH (09:30)
[2019-02-27] MEDS ORDERED: ACETAMINOPHEN 325 MG TAB PO PRN (09:58)
--- NOTE | 2019-02-27 14:38 | Surgery Progress Note ---
Date of Service February 27, 2019 Assessment & Plan (1) Acute appendicitis: POD # 1 s/p lap appy -vitals stable, afebrile - leukocytosis of 18K persists - post op pain controlled - no n/v Plan: advance diet as tolerated continue PO Percocet and Tylenol prn pain encouraged OOB to chair and ambualtion continue IV Zosyn for now given leukocytosis repeat am cbc possible discharge home tomorrow SCDs for dvt prophylaxis continue home meds Dr. Brizuela has seen pt, agrees with above Subjective feeling okay preoperative pain resolved post op pain mild , controlled no n/v tolerating liquids so far has not ambulated hallway just to bathroom Physical Exam Constitutional: WD/WN, vitals as above no acute distress and not ill appearing Respiratory: normal respiratory effort; no respiratory distress Gastrointestinal (Abdomen): Inspection/Auscultation: abdomen normal to inspection; abdomen not distended Percussion/Palpation: + abdomen tender (at incision sites) and abdomen soft; no guarding and abdomen not rigid Skin: no rashes, warm and dry + incision (covered with dry dressings) Psychiatric: A+Ox3, euthymic affect Results & Data Vital Signs (Past 12 Hours) Vital Signs Temp Pulse Resp BP Pulse Ox 02/27/19 12:33 36.6 C 75 18 116/64 96 02/27/19 07:12 36.7 C 81 15 107/63 95 02/27/19 03:24 37 C 95 H 16 108/61 98 Laboratory Results 02/27/19 02/27/19 02/26/19 Range/Units 07:16 07:16 20:38 WBC 18.95 H (4.8-10.8) K/uL RBC 4.52 (4.2-5.4) M/uL Hgb 12.0 (12.0-16.0) g/dL Hct 36.8 L (37-47) % MCV 81.4 (80-100) fL MCH 26.5 (25-34) pg MCHC 32.6 (32-36) g/dL RDW Std Deviation 41.9 (36.4-46.3) fL RDW Coeff of Roderick 14.0 (11.5-14.5) % Plt Count 199 (130-400) K/uL MPV 10.6 H (7.4-10.4) fL Immature Gran % (Auto) 0.4 % Neut % (Auto) 87.3 % Lymph % (Auto) 5.3 % Johnson % (Auto) 6.9 % Eos % (Auto) 0.0 % Baso % (Auto) 0.1 % Immature Gran # (Auto) 0.07 H (0.00-0.02) K/uL Neut # (Auto) 16.56 H (1.4-6.5) K/uL Lymph # (Auto) 1.01 L (1.2-3.4) K/uL Johnson # (Auto) 1.30 H (0.11-0.59) K/uL Eos # (Auto) 0.00 (0-0.5) K/uL Baso # (Auto) 0.01 (0-0.2) K/uL Sodium 136 (136-145) mmol/L Potassium 3.9 (3.5-5.1) mmol/L Chloride 107 (98-107) mmol/L Carbon Dioxide 18 L (21-32) mmol/L Anion Gap 11.0 (3-11) BUN 9 D (7-18) mg/dl Creatinine 0.52 L (0.6-1.2) mg/dl Est Cr Clr Drug Dosing 104.7 ml/min Est GFR ( Amer) 126.4 Est GFR (Non-Af Amer) 109.1 BUN/Creatinine Ratio 18.0 (10-20) Glucose 157 H (70-99) mg/dl POC Glucose 132 H (70-99) Calcium 8.3 L (8.5-10.1) mg/dl Total Bilirubin 0.8 (0.2-1) mg/dl AST 35 (15-37) U/L ALT 55 (12-78) U/L Alkaline Phosphatase 75 (45-117) U/L Total Protein 6.6 (6.4-8.2) gm/dl Albumin 2.8 L (3.4-5.0) gm/dl Globulin 3.8 (2.5-4.0) gm/dl Albumin/Globulin Ratio 0.7 L (0.9-2) POC Urine Bilirubin 02/26/19 02/26/19 Range/Units 18:00 13:25 WBC (4.8-10.8) K/uL RBC (4.2-5.4) M/uL Hgb (12.0-16.0) g/dL Hct (37-47) % MCV (80-100) fL MCH (25-34) pg MCHC (32-36) g/dL RDW Std Deviation (36.4-46.3) fL RDW Coeff of Roderick (11.5-14.5) % Plt Count (130-400) K/uL MPV (7.4-10.4) fL Immature Gran % (Auto) % Neut % (Auto) % Lymph % (Auto) % Johnson % (Auto) % Eos % (Auto) % Baso % (Auto) % Immature Gran # (Auto) (0.00-0.02) K/uL Neut # (Auto) (1.4-6.5) K/uL Lymph # (Auto) (1.2-3.4) K/uL Johnson # (Auto) (0.11-0.59) K/uL Eos # (Auto) (0-0.5) K/uL Baso # (Auto) (0-0.2) K/uL Sodium (136-145) mmol/L Potassium (3.5-5.1) mmol/L Chloride (98-107) mmol/L Carbon Dioxide (21-32) mmol/L Anion Gap (3-11) BUN (7-18) mg/dl Creatinine (0.6-1.2) mg/dl Est Cr Clr Drug Dosing ml/min Est GFR ( Amer) Est GFR (Non-Af Amer) BUN/Creatinine Ratio (10-20) Glucose (70-99) mg/dl POC Glucose 95 (70-99) Calcium (8.5-10.1) mg/dl Total Bilirubin (0.2-1) mg/dl AST (15-37) U/L ALT (12-78) U/L Alkaline Phosphatase (45-117) U/L Total Protein (6.4-8.2) gm/dl Albumin (3.4-5.0) gm/dl Globulin (2.5-4.0) gm/dl Albumin/Globulin Ratio (0.9-2) POC Urine Bilirubin Not Reportable (1) Acute appendicitis Acute appendicitis type: unspecified acute appendicitis type Qualified Code(s): K35.80 - Unspecified acute appendicitis
[2019-02-28] MEDS: PIPERACILLIN/TAZOBACTAM 3.375 GM in DEXTROSE 5% 100 ML IV SCH (03:53)
[2019-02-28] MEDS: OXYCODONE/ACETAMINOPHEN 5mg/325mg TAB PO PRN ×2 (03:54→08:03)
[2019-02-28 06:13] LABS: Basophils # (auto) 0.02 K/uL (0-0.2); Basophils % (auto) 0.2 %; Eosinophils # (auto) 0.24 K/uL (0-0.5); Hematocrit (blood only) 32.9 % (37-47); Hemoglobin 10.7 g/dL (12.0-16.0); Immature Granulocytes # (auto) 0.03 K/uL (0.00-0.02); Immature Granulocytes % (auto) 0.2 %; Lymphocytes # (auto) 1.62 K/uL (1.2-3.4); Lymphocytes % (auto) 13.3 %; Mean Corpuscular Hgb Conc 32.5 g/dL (32-36); Mean Platelet Volume 10.2 fL (7.4-10.4); Monocytes # (auto) 1.32 K/uL (0.11-0.59); Monocytes % (auto) 10.8 %; Neutrophils # (auto) 8.95 K/uL (1.4-6.5); Neutrophils % (auto) 73.5 %; Platelet Count 196 K/uL (130-400); RDW Coefficient of Variation 13.9 % (11.5-14.5); RDW Standard Deviation 41.5 fL (36.4-46.3); Red Blood Count 4.06 M/uL (4.2-5.4); White Blood Count 12.18 K/uL (4.8-10.8)
[2019-02-28] MEDS: SITAGLIPTIN PHOSPHATE 25 MG TAB PO SCH (07:28)
[2019-02-28] MEDS: METFORMIN HCL 500 MG TAB PO SCH (07:28)
--- NOTE | 2019-02-28 10:23 | Surgery Progress Note ---
Date of Service February 28, 2019 Assessment & Plan (1) Acute appendicitis: POD # 2 s/p lap appy -vitals stable, afebrile - leukocytosis improved to 12K - post op pain controlled - no n/v Plan: Discharge home today discharge instructions reviewed rx for percocet prn pain rx for Augmentin for 5 days f/u surgical office 1-2 weeks Subjective feeling good moderate post op pain, controlled with percocet no n/v tolerating diet Physical Exam Constitutional: WD/WN, vitals as above Gastrointestinal (Abdomen): Inspection/Auscultation: abdomen not distended Percussion/Palpation: + abdomen tender and abdomen soft; no guarding and abdomen not rigid Skin: no rashes, warm and dry Psychiatric: A+Ox3, euthymic affect Results & Data Vital Signs (Past 12 Hours) Vital Signs Temp Pulse Pulse Resp BP Pulse Ox 02/28/19 08:30 36.7 C 80 14 134/80 99 02/27/19 22:56 36.7 C 78 16 110/67 99 (1) Acute appendicitis Acute appendicitis type: unspecified acute appendicitis type Qualified Code(s): K35.80 - Unspecified acute appendicitis
--- NOTE | 2019-03-03 09:48 | Discharge Summary ---
Date of Service March 03, 2019 Admission HPI Per Admitting Provider pt is a 54 year-old female who presents to [facility] with 3 days history RLQ pain, with nausea, no vomiting, the pain is located at RLQ, pt denies diarrhea, no fever, pt had CT scan at [facility], Dx acute appendicitis, pt's PMH only is DM, pt denies any chest pain, no SOB. Principal Diagnosis gangrenous acute appendicitis Discharge Data Allergies Allergy/AdvReac Type Severity Reaction Status Date / Time No Known Allergies Allergy Verified 02/26/19 17:53 Consultations 02/26/19 16:13 ED Decision to Admit Stat Procedures Performed Operation Date: 02/26/19 12:40 Actual Procedures p Laparoscopic Appendectomy(Not Applicable) - Katie Brizuela MD Ordered Studies 02/26/19 12:53 CT abd pelvis oral and IV con Stat Hospital Course (1) Acute appendicitis: Patient was taken to operating room for laparoscopic appendectomy by Dr. Brizuela. Patient was found to have severe acute appendicitis with gangrenous changes and possible microperforation. Patient tolerated procedure well and was transferred to recovery room and then to medical/surgical floor for postoperative care. Started on clear liquids, PO Percocet with breakthrough Dilaudid, IV Zofran prn nausea, activity as tolerated, SCDs for DVT prophylaxis and incentive spirometry. POD # 1 , vitals stable afebrile, moderate pain but controlled. Tolerating clear liquids, appetite is low. Has not ambulated hallway yet. Leukocytosis of 18K persists. IV zosyn was continued. Diet was advanced as tolerated. POD # 2 vitals stable, afebrile, leukocytosis improved to 12K. post op pain controlled, tolerating regular diet, no n/v. Patient was discharged home on POD # 2 in stable condition with 5 days of oral abx and follow-up in surgical office in 1-2 weeks. Total Time Total Time Spent Total Time Spent (In Minutes): 20 Total Time Includes: Examination of the Patient, Discharge Planning and Medication Reconciliation Discharge Plan Discharge Items Patient Disposition: Home - Self-Care Reason For Visit: ACUTE APPENDICITIS Discharge Diagnosis: same Discharge Goals: Decrease discomfort and Improve function Activity: Per 'Additional Instructions' section Non-emergency contact: Surgeon Call non-emergency contact if: your pain is not controlled, your pain is worsening, your pain is concerning for you, you have a fever, your temperature is above 101, your wound has increased redness and your wound has increased drainage Follow-up/Referrals: Alli Adair [Primary Care Provider] - Diet: Regular Addtl Provider Instructions: No heavy lifting over 20 pounds for 3-4 weeks No strenuous activity until cleared by surgeon No submerging incisions underwater for 2 weeks (no bathing, swimming, or hot tubs) No driving while taking narcotic pain medication or until you are pain free You may shower tomorrow morning. Wash hair and sponge bath in meantime. Take outer dressings off and shower. leave steri strips on incisions for 7 days and then remove. Walking and light activity is encouraged daily to prevent blood clots from forming in your legs. You will be given prescription for narcotic pain medication (Percocet) as needed for moderate to severe pain. Take as directed. This medication may cause drowsiness or constipation. You may take extra strength Tylenol or Ibuprofen as needed for mid pain. To avoid constipation: drink plenty of liquids, daily walking, avoid foods that constipate. May take OTC stool softener daily or twice a day while taking pain medication. If those measures do not work, you may take Miralax or Milk of Magnesia. Follow-up in surgical office in 1-2 weeks, please call office at [phone] to make an appointment. Prescriptions: New oxycodone-acetaminophen 5-325 mg tablet 1 tab PO Q4H PRN (Reason: pain) Qty: 15 RF: 0 amoxicillin-pot clavulanate [Augmentin] 875-125 mg tablet 1 tab PO BID Qty: 10 RF: 0 Continued metformin 500 mg tablet 500 mg PO BID RF: 0 Januvia 50 mg tablet 50 mg PO DAILY RF: 0 Jardiance 10 mg tablet 10 mg PO DAILY RF: 0 Stand-Alone Forms: Call Back Authorization, [facility], [facility] Discharge Orders: Discharge Order (Routine); Ordered 02/28/19 Ordered By: Nikki Hazel Admission Data Admit Date/Time: 02/26/19 20:24 Attending Provider: Katie Brizuela Admit Provider: Katie Brizuela Primary Care Provider: Alli Adair Other Providers: Katie Brizuela Service: Surgical Services Other Interventions: Discharge Summary Assessment (RN) Last Done: 02/28/19 10:22 Pending Studies at Discharge: Yes (appendix pathology, will be reviewed at follow up visit) DC Date/Time DO NOT enter until pt leaves facility: 02/28/19 10:51
== END 2019-02-28 10:51 | disposition home or self-care (01) ==
LOC: ED 12:26 → 3W 17:47 → OR 17:47